=== PATIENT | female | born 1995 | race Caucasian/White ===

== ENCOUNTER 2017-09-01 19:24 | Emergency (ER) | payer OTHER ==
[~2017-09-01] VITALS: Ht 172.7 cm; Wt 65.0 kg
[2017-09-01 20:06] LABS: APPEARANCE CLOUDY ((CLEAR)); BILIRUBIN NEGATIVE; BLOOD LARGE; COLOR YELLOW ((YELLOW)); GLUCOSE (STRIP) NEGATIVE; KETONES NEGATIVE; LEUKOCYTES LARGE; NITRITE NEGATIVE; PROTEIN (STRIP) 100; SPECIFIC GRAVITY 1.014 (1.000-1.030); UROBILINOGEN 0.2 MG/DL (0.2-1.0)
[2017-09-01 20:08] LABS: HEMATOCRIT 43.7 % (36.0-46.0); HEMOGLOBIN 14.6 G/DL (11.9-15.5); MCH 28.2 PG (29.0-34.0); MCHC 33.4 G/DL (30.0-36.0); MCV 84.4 FL (83-99); PLATELET COUNT 219 K/uL (156-360); RBC DIS.WIDTH-CV 13.4 % (11.8-14.6); RBC DIS.WIDTH-SD 41.6 % (39-53); RED BLOOD COUNT 5.18 M/uL (3.80-5.20); WHITE BLOOD COUNT 10.9 K/uL (4.1-10.2)
[2017-09-01 20:16] LABS: CHLORIDE 104 mEq/L (99-109); SODIUM 141 mEq/L (136-147)
[2017-09-01 20:18] LABS: GLUCOSE 79 mg/dL (70-99)
[2017-09-01 20:22] LABS: CREATININE 0.8 mg/dL (0.6-1.3); GFR ESTIMATE (CALCULATED) > 59 mL/min/
[2017-09-01 20:23] LABS: UREA NITROGEN (BUN) 15 mg/dL (9-23)
[2017-09-01 20:26] LABS: BACTERIA RARE /HPF; EPITHELIAL CELLS 1+ /HPF; MUCUS NONE SEEN /LPF; RED BLOOD CELLS TNTC /HPF (0-5); WHITE BLOOD CELLS TNTC /HPF (0-5)
[2017-09-01 20:30] LABS: QUANTITATIVE HCG < 4.0 MIU/ML
[2017-09-01] MEDS ORDERED: PYRIDIUM100 MG PO (20:40)
[2017-09-01] MEDS ORDERED: BACTRIM,SEPT1 TABLET PO (20:40)
[2017-09-01 20:54] VITALS: BP 133/77
== END 2017-09-01 20:54 | disposition home or self-care (01) ==
LOC: EME 19:24
PROVIDERS: Nurse Practitioner Family
DX: N39.0 Urinary tract infection, site not specified (principal); Z87.440 Personal history of urinary (tract) infections
CPT/HCPCS: 80048; 81003; 84702; 85027; 99281; 99283